=== PATIENT | male | born 1980 | race American Indian/Alaskan Native ===

== ENCOUNTER 2017-08-04 07:13 | Emergency (ER) | payer MEDICAID ==
[2017-08-04] MEDS ORDERED: NORCO 5/325 PO ONE (08:45)
--- NOTE | 2017-08-04 08:47 | Emergency Department Report ---
ED Fall HPI - General Chief Complaint: Pain General Stated Complaint: BODYACHE Time Seen by Provider: 08/04/17 08:29 Source: patient Mode of arrival: Ambulatory - History of Present Illness Initial Comments: 36-year-old male past medical history hyperlipidemia presents with complaint of upper back pain and anterior chest discomfort status post fall off of a ladder. Patient states she was cleaning the gutters of a house. As he stepped off a roof and stepped onto lateral ladder collapsed and he fell approximately 10-15 feet down on his to his back. Patient denies loss of consciousness. Was assisted by family member. States he was wearing a soft backpack which may have created this fall slightly. Patient is awake alert and oriented 3 the primarly complaining of upper back pain and aching. Visibly moving all extremities and is ambulatory without assistance. Adamantly denies LOC associated with fall. MD Complaint: fall -: days(s) Fall From: other (off of ladder) Fall Witnessed: yes, by family, yes, by bystander Place Fall Occurred: home Loss of Consciousness: none Prolonged Down Time?: no Location: back Severity: moderate Severity scale (0 -10): 5 Quality: aching Context: tripped/slipped - Related Data Previous Rx's Medication Instructions Recorded Last Taken Type HYDROcodone/APAP 5-325 [Flynn 1 each PO Q6HR PRN #9 tablet 08/04/17 Unknown Rx 5/325] Ibuprofen [Motrin] 800 mg PO Q8HR PRN #20 tablet 08/04/17 Unknown Rx Allergies Allergy/AdvReac Type Severity Reaction Status Date / Time No Known Allergies Allergy Unverified 08/04/17 07:24 ED Review of Systems ROS: Stated complaint: BODYACHE Other details as noted in HPI Constitutional: denies: chills, fever Eyes: denies: eye pain, eye discharge, vision change ENT: denies: ear pain, throat pain Respiratory: denies: cough, shortness of breath, wheezing Cardiovascular: denies: chest pain, palpitations Endocrine: no symptoms reported Gastrointestinal: denies: abdominal pain, nausea, diarrhea Genitourinary: denies: urgency, dysuria Musculoskeletal: denies: back pain, joint swelling, arthralgia Skin: denies: rash, lesions Neurological: denies: headache, weakness, paresthesias Psychiatric: denies: anxiety, depression Hematological/Lymphatic: denies: easy bleeding, easy bruising ED Past Medical Hx - Past Medical History Additional medical history: hyperlipidemia - Social History Smoking Status: Current Every Day Smoker - Medications Home Medications: Home Medications Medication Instructions Recorded Confirmed Last Taken Type HYDROcodone/APAP 5-325 [Flynn 1 each PO Q6HR PRN #9 tablet 08/04/17 Unknown Rx 5/325] Ibuprofen [Motrin] 800 mg PO Q8HR PRN #20 tablet 08/04/17 Unknown Rx ED Physical Exam - General Limitations: No Limitations General appearance: alert, in no apparent distress - Head Head exam: Present: atraumatic, normocephalic - Eye Eye exam: Present: normal appearance, PERRL, EOMI - ENT ENT exam: Present: mucous membranes moist - Neck Neck exam: Present: normal inspection, full ROM - Respiratory Respiratory exam: Present: normal lung sounds bilaterally, chest wall tenderness (anterior chest discomfort on deep palpation). Absent: respiratory distress - Cardiovascular Cardiovascular Exam: Present: regular rate, normal rhythm. Absent: systolic murmur, diastolic murmur, rubs, gallop - GI/Abdominal GI/Abdominal exam: Present: soft (abdomen soft nontender nondistended four quadrants), normal bowel sounds - Rectal Rectal exam: Present: deferred - Extremities Exam Extremities exam: Present: normal inspection - Back Exam Back exam: Present: normal inspection, full ROM (range of motion flexion and extension lateral rotation intact), paraspinal tenderness (H and has some paraspinal cervical and thoracic spine tenderness, no tenderness L spine. No ecchymosis on back) - Neurological Exam Neurological exam: Present: alert, oriented X3, CN II-XII intact, normal gait - Expanded Neurological Exam Expanded Patient oriented to: Present: person, place, time Cranial nerves: EOM's Intact: Normal, Facial Sensation: Normal Sensory exam: Upper Extremity Light Touch: Normal, Lower Extremity Light Touch: Normal Motor strength exam: RUE: 5, LUE: 5, RLE: 5, LLE: 5 Best Eye Response (Margi): (4) open spontaneously Best Motor Response (Margi): (6) obeys commands Best Verbal Response (Raiford): (5) oriented [place] Total: 15 - Psychiatric Psychiatric exam: Present: normal affect, normal mood - Skin Skin exam: Present: warm, dry, intact, normal color. Absent: rash ED Course Vital Signs 08/04/17 07:21 Temperature 98.8 F Pulse Rate 52 L Respiratory 16 Rate Blood Pressure 128/76 O2 Sat by Pulse 100 Oximetry ED Medical Decision Making - Medical Decision Making A/P: Fall, musculoskeletal pain, back pain 1-short course of Motrin and Flynn 2-CT is unremarkable, no fractures 3-follow-up with primary care 4- vital signs stable for discharge 5- case discussed with Dr. Branch Critical care attestation.: If time is entered above; I have spent that time in minutes in the direct care of this critically ill patient, excluding procedure time. ED Disposition Clinical Impression: Mid back pain, Musculoskeletal back pain Fall with no significant injury Qualifiers: Encounter type: initial encounter Qualified Code(s): W19.XXXA - Unspecified fall, initial encounter Disposition: TO HOME OR SELFCARE Is pt being admited?: No Does the pt Need Aspirin: No Condition: Stable Instructions: Back Pain (ED), Musculoskeletal Pain (ED) Prescriptions: HYDROcodone/APAP 5-325 [Flynn 5/325] 1 each PO Q6HR PRN #9 tablet PRN Reason: Pain Ibuprofen [Motrin] 800 mg PO Q8HR PRN #20 tablet PRN Reason: Pain , Severe (7-10) Referrals: ONEYDA OLIVER MD [Primary Care Provider] - 3-5 Days THEA CLEMENS MD [Staff Physician] - 3-5 Days Forms: Work/School Release Form(ED) Time of Disposition: 09:40
--- NOTE | 2017-08-04 09:15 | Cat Scan Report ---
CT HEAD WITHOUT CONTRAST:08/04/17 07:13:00 CLINICAL: Followup greater than 10 feet. Headache. TECHNIQUE: 2.5-mm noncontrast scans. COMPARISON:None FINDINGS: The ventricles and sulci are normal for age. No abnormal density. No hemorrhage, edema or extra-axial collection. No mass or mass effect. The sinuses are clear. Normal orbits and soft tissues. The calvarium and skull base are intact. No fracture. IMPRESSION: Normal study.
--- NOTE | 2017-08-04 09:17 | Cat Scan Report ---
CT CERVICAL SPINE WITHOUT CONTRAST:08/04/17 08:49 CLINICAL: Fall greater than 10 feet. Pain. TECHNIQUE: Volumetric acquisition and 1.25-mm axial scan reconstructions without contrast. Sagittal and coronal reformats were performed. FINDINGS: Normal vertebral body height, alignment and disk spaces. No fracture or subluxation. Normal soft tissues and airway. The discs are intact. No disc protrusions or bulges. IMPRESSION: Normal study.
--- NOTE | 2017-08-04 09:22 | Cat Scan Report ---
CT CHEST WITHOUT CONTRAST: 08/04/17 08:50 CLINICAL: Pain after fall of greater than 10 feet. TECHNIQUE: Volumetric acquisition and 1.25 mm axial scan reconstructions without contrast. FINDINGS: The bones are intact. No fracture or subluxation. The lungs are normally expanded and clear except for very mild bibasal patchy opacities which are likely atelectasis. No pneumothorax. Normal heart and vasculature. No hemorrhage or pleural effusion. Normal thyroid, trachea and esophagus. The upper abdomen is unremarkable an almost the entire liver and all of the spleen are included on exam. No evidence of upper abdominal pneumoperitoneum. IMPRESSION: Mild bibasal subsegmental atelectasis and otherwise normal. No apparent traumatic injury.
--- NOTE | 2017-08-04 09:24 | Cat Scan Report ---
CT THORACIC SPINE WITHOUT CONTRAST: 08/04/17 08:44:00 CLINICAL: Pain after fall greater than 10 feet. TECHNIQUE: Volumetric acquisition and 1.25-mm and 2.5 mm axial scan reconstructions of the thoracic spine without contrast. Sagittal and coronal reformats were performed. COMPARISON: None. FINDINGS: Normal vertebral body height, alignment and disk spaces. No fracture or subluxation.The soft tissues are normal. IMPRESSION: Normal study with no apparent thoracic injury.
[2017-08-04 09:42] VITALS: BP 119/65
== END 2017-08-04 09:48 | disposition home or self-care (01) ==
LOC: ED 07:13
DX: M54.6 Pain in thoracic spine (principal); E78.5 Hyperlipidemia, unspecified; F17.200 Nicotine dependence, unspecified, uncomplicated; R51 Headache; W19.XXXA Unspecified fall, initial encounter; Y93.89 Activity, other specified; Y99.8 Other external cause status; Y92.098 Other place in other non-institutional residence as the place of occurrence of the external cause
CPT/HCPCS: 70450; 71250; 72125; 72128